=== PATIENT | female | born 1960 | race Caucasian/White ===

== ENCOUNTER 2016-11-08 05:45 | Day surgery (SDC) | payer OTHER ==
[~2016-11-08] VITALS: Ht 165.1 cm; Wt 65.8 kg
[~2016-11-08 05:45] MED LIST: ALLEGRA ALLERG180 MG PO; MULTIVITAMINS1 EAC7 PO
--- NOTE | 2016-11-08 11:46 | NUR ---
11/08/16 1146 Maru Zamudio 1141 PATIENT ARRIVES TO PACU UNRESPONSIVE TO PAIN OR VERBAL STIMULI. ORAL AIRWAY IN PLACE, MASK AT 6 LITERS. INITIAL TEMP IS 96.8, BEAR HUGGER ON .
--- NOTE | 2016-11-08 12:46 | NUR ---
1235: PATIENT BACK IN DAY SURGERY ROOM FROM PACU. C/O PAIN IN VAGINAL AREA. RECENTLY MEDICATED IN PACU. PATIENT DROWSY, BUT EASILY AWAKENS. IV SITE WNL. SCDs ON. ICE WATER PLACED AT BEDSIDE. VERA HUGGER PLACED ON PATIENT. FORRESTER CATHETER IN PLACE. CALL LIGHT WITHIN REACH.
--- NOTE | 2016-11-08 14:32 | NUR ---
PATIENT SLEEPING. AWAKENS EASILY TO VOICE. VS CHECKED. FORRESTER EMPTIED. IV SITE WNL. DENIES NEED FOR PAIN MEDICATION AT THIS TIME. SCDs ON. CALL LIGHT WITHIN REACH.
--- NOTE | 2016-11-08 15:30 | NUR ---
PATIENT AWAKENED FOR ASSESSMENT. C/O PAIN 05/01. DENIES NEED FOR PAIN MEDICATION AT THIS TIME. TOLERATING SIPS OF WATER. STATES FEELS "SO SLEEPY". FORRESTER IN PLACE. SCDs ON. IV SITE WNL. CALL LIGHT WITHIN REACH.
--- NOTE | 2016-11-08 17:45 | NUR ---
PATIENT ARRIVES TO FLOOR VIA STRETCHER, STABLE. AOX3. REPORT RECEIVED FROM WILDLIFE REFUGE SPECIALIST ANNELIESE. PATIENT ABLE TO STAND FOR TRASNFER FROM STRETCHER TO BED, TOLERATED WELL. PATIENT REPORTS TOLERABLE PAIN 2/10 TO ABDOMEN AT THIS TIME. DENIES ANY N/V. CALL LIGHT WITHIN REACH, ICE WATER REFRESHED.
--- NOTE | 2016-11-08 18:51 | NUR ---
LR @125ML/HR STARTED PER MD ORDERS. PATIENT FEELS OK TO TRY CRACKERS AT THIS TIME. DENES ANY N/V. CONTINUES TO REPORT PAIN TOLERABLE.
--- NOTE | 2016-11-08 20:20 | NUR ---
ASSESSMENT COMPLETE. VSS. PT DENIES N/V AND PAIN. FRESH WATER PROVIDED. IV INFUSING. FORRESTER EMPTIED. ATE REGULAR DIET SNACK, ANGIE WELL.
--- NOTE | 2016-11-08 21:22 | NUR ---
SCHEDULED STOOL SOFTNERS GIVEN. DENIES PAIN, N/V. RESTING COMFORTABLY. FRESH WATER PROVIDED. CALL LIGHT WITHIN REACH.
--- NOTE | 2016-11-08 22:26 | NUR ---
SCHEDULED RX GIVEN. PT DENIES PAINFUL, REPORTS "SORENESS" AT INCISION SITES. SURGICAL SITES WNL. RESTING COMFORTABLY LEFT TILT. FORRESTER EMPTIED, FRESH WATER GIVEN. DENIES FURTHER REQUESTS.
--- NOTE | 2016-11-09 00:14 | NUR ---
AMBULATES IN ROOM, ANGIE WELL. BACK TO BED. DENIES NEEDING ANYTHING FOR PAIN, REPORTS "SORE" BUT NOT PAINFUL. VSS. IV INFUSING. SCDS ON. FORRESTER DRAINED, WNL. FRESH WATER PROVIDED. DENIES FURTHER NEEDS.
--- NOTE | 2016-11-09 02:20 | NUR ---
RESTING. IV SALINE LOCKED. FORRESTER EMPTIED. FRESH WATER GIVEN. PT REPORTS FEELING "ACHY" BUT DENIES NEED FOR PAIN RX.
--- NOTE | 2016-11-09 04:35 | NUR ---
REQUESTS PAIN RX FOR 4/10 PAIN IN ABD, PAIN RX GIVEN SEE EMAR. 3 INCISION SITES WNL. VSS. FORRESTER DRAINED CLEAR YELLOW URINE. VAG PACKING REMOVED, PT ANGIE WELL. FRESH PAD AND PERIPAD PLACED. PT PLANS TO REST. FRESH WATER GIVEN.
--- NOTE | 2016-11-09 06:46 | NUR ---
SCHEDULED RX GIVEN, SEE EMAR. UP TO BR, VOIDS SMALL AMOUNT, ENCOURAGED PO FLUIDS. BACK TO BED, PT ANGIE WELL. PLANS TO ORDER BREAKFAST. SCDS IN PLACE.
--- NOTE | 2016-11-09 08:33 | NUR ---
ASSESSMENT COMPLETED, PT STATES PAIN 05/01, RESTING, SCD'S ON
--- NOTE | 2016-11-09 12:52 | NUR ---
1110-PT DISCHARGED HOME VIA WC
--- NOTE | 2016-11-13 08:26 | OR ---
[facility] [address] [place], [place] [address] Signed DATE OF SERVICE: 11/08/2016 PREOPERATIVE DIAGNOSES: Uterovaginal prolapse complete. BRCA2 mutation positive. POSTOPERATIVE DIAGNOSES: Uterovaginal prolapse complete. BRCA2 mutation positive. PROCEDURES: Total laparoscopic hysterectomy with bilateral salpingo-oophorectomy, anterior and posterior repair and cystoscopy. SURGEON: Dr. Abelardo Sanchez. CITY RECORDER: Dr. Kerwin Muñoz. ANESTHESIA: General. ESTIMATED BLOOD LOSS: 75 mL. SPECIMEN: Uterus, both fallopian tubes and both ovaries. DRAINS: Solis to bladder. PACKING: Premarin soaked gauze in vagina. FINDINGS: Cervix closed. Uterus normal size and shape with uterine cavity scarred closed due to previous endometrial ablation with a cavity finally sounding to 9 cm. The anterior cul- de-sac was free of any endometriosis or adhesions. The posterior cul-de-sac was free of any endometriosis or adhesions. The left tube was normal length and normal pink fimbriated end. No adhesions. Left ovary is normal size and shape without any evidence of endometriosis or adhesions. The right tube was normal in length and normal pink fimbriated end and no adhesions. Right ovary is normal size and shape without any evidence of endometriosis or adhesions. The rest of the pelvis was free of any masses or adhesions. The abdomen including the liver and the diaphragm and peritoneum all appeared normal with no lesions. COMPLICATIONS: None Electronically Signed By: ABELARDO SANCHEZ MD 11/13/16 0826 PATIENT NAME: GUCCI GRESHAM HAND OPERATIVE REPORT DATE OF : 62 PHYSICIAN: ABELARDO SANCHEZ MD REPORT #: [id number] REPORT IS CONFIDENTIAL AND NOT TO BE RELEASED WITHOUT AUTHORIZATION [facility] [address] [place], [place] [address] Signed DESCRIPTION OF PROCEDURE: The patient was brought to the operating room, placed supine position. After adequate general anesthesia was obtained, was placed on dorsal lithotomy position, prepped and draped in the usual sterile fashion. Solis catheter was placed in the bladder and weighted speculum placed in vagina. The anterior lip of cervix was grasp e d with an Allis clamp. Uterine cavity was attempted to be sounded but even with dilator it was very difficult to enter the uterine cavity, so the uterine manipulator was placed only into the lower segment as far as it could go in the balloon filled and th e n the cervical cap and after removing the Allis clamp and weighted speculum the cervical cap was slid up around the cervix and the vaginal cuff slid down and tightened in place to hold the cervical cap in place. A sterile glove was placed over the uterine manipulator to use so that this could be manipulated from above. Attention was then drawn to the abdomen. A small incision was made with a scalpel after injecting the area with local anesthetic. The abdominal wall was elevated and the translucent trocar and sleeve with laparoscope within the trocar was used to enter the abdomen under direct visual visualization. With the sleeve in the abdomen, the trocar was removed, then the laparoscope taken out of the trocar in place through the sleeve. Abdomen was in sufflated with carbon dioxide. On the left side, the abdomen just below the level of the umbilicus was transilluminated and after injecting local anesthetic a small skin incision was made and a bladed 5 mm trocar and sleeve entered the abdomen under direct visualization. The trocar was removed and the blunt probe inserted. On the right side just below the level of the umbilicus again the abdomen was transilluminated to avoid any vessels and the skin was injected with local anesthetic and Veress needle with expandable sleeve placed through the abdominal wall into the abdomen under direct visualization. The Veress needle was removed, then the expandable 10 mm trocar and sleeve was placed through the mesh expanding the fascial incision open. The trocar was karie v ed leaving the sleeve. Blunt graspers were also inserted through this, the above findings were noted. The LigaSure [place] bipolar forceps were then placed in and the left infundibulopelvic ligament cauterized in several places and cut. The upper pedicle was then cut down the side of the broad ligament and down to the round ligament, and the upper pedicle leaving the tube and ovary attached to the uterus. Once reaching the broad ligament, the anterior and posterior leaves of broad ligament were , cauterized and cut separately near the side of the uterus and extending down to the midline anteriorly and posteriorly. Uterine vessels were then exposed and identified and these were cauterized in several places and then cut again using the [place] bipolar forceps. The paracervical tissue was also cauterized and cut freeing down to the level of the vaginal mucosa. Abelardo Sanchez MD Electronically Signed By: ABELARDO SANCHEZ MD 11/13/16 0826 PATIENT NAME: GUCCI GRESHAM OPERATIVE REPORT DATE OF : 62 PHYSICIAN: ABELARDO SANCHEZ MD REPORT #: [id number] REPORT IS CONFIDENTIAL AND NOT TO BE RELEASED WITHOUT AUTHORIZATION [address] [place], [place] [address] Signed LEIF/Piotr /[id number] cc: Fady Balbuena Electronically Signed By: ABELARDO SANCHEZ MD 11/13/16 0826 PATIENT NAME: MARGAGUCCI [facility] OPERATIVE REPORT DATE OF : 62 PHYSICIAN: ABELARDO SANCHEZ MD REPORT #: [id number] REPORT IS CONFIDENTIAL AND NOT TO BE RELEASED WITHOUT AUTHORIZATION
--- NOTE | 2016-11-13 08:26 | OR ---
[facility] [address] [place], [place] [address] Signed DATE OF SERVICE: 11/08/2016 PREOPERATIVE DIAGNOSIS: Complete uterovaginal prolapse and positive for BRCA2 gene mutation. POSTOPERATIVE DIAGNOSIS: Complete uterovaginal prolapse and positive for BRCA2 gene mutation. PROCEDURE: Total laparoscopic hysterectomy, bilateral salpingo-oophorectomy, anterior and posterior repair, and cystoscopy. SURGEON: Abelardo Sanchez MD. PRIMER EXPEDITOR AND DRIER: Dr. Kerwin Muñoz. ANESTHESIA: General. ESTIMATED BLOOD LOSS: 75 mL. SPECIMEN: Uterus, both fallopian tubes, and ovaries. DRAINS: Solis to bladder, packing, Premarin gauze, and vagina. FINDINGS: Normal cervix, normal size uterus with grade 2 to 3 prolapse. Uterine cavity was scarred, closed due to previous endometrial ablation. After dissecting with a sound, the uterine cavity did sound as 9 cm. The anterior cul-de-sac was free of any endometriosis or adhesions. The posterior cul-de-sac was free of any endometriosis or adhesions. The left tube was normal in length and normal pink fimbriated end. Left ovary is normal size and shape without any evidence of endometriosis or masses or adhesions. The right tube was normal in length and normal pink fimbriated end. Right ovary is normal without any evidence of any masses, endometriosis, or adhesions. Rest of the pelvis was free of any masses, scarring, or lesions. The liver and diaphragm appeared normal with no lesions. DESCRIPTION OF PROCEDURE: The patient was brought into the operating room, placed in the supine position after adequate general anesthesia was obtained. The patient was placed in dorsal lithotomy position, prepped and draped in usual sterile fashion. Solis catheter was placed in the bladder. A weighted speculum was placed in the vagina, and the anterior lip of the cervix was grasped with an Allis clamp. Uterine cavity attempted to be sounded, but the sound would only go in short distance, attempt was made to dilate this further and the Electronically Signed By: ABELARDO SANCHEZ MD 11/13/16 0826 PATIENT NAME: GUCCI GRESHAM [facility] OPERATIVE REPORT DATE OF : 62 PHYSICIAN: ABELARDO SANCHEZ MD REPORT #: [id number] REPORT IS CONFIDENTIAL AND NOT TO BE RELEASED WITHOUT AUTHORIZATION [facility] [address] [place], [place] [address] Signed sound could only go in about 4 to 5 cm. The are uterine manipulator was then placed in this shortened space, which apparently was in the lower uterine segment and the balloon filled. After removing the Allis clamp and weighted speculum, the cervical cap was slid up and around the cervix and the vaginal cup slid up and tightened and placed to hold the cervical cap in place. A sterile g love was placed over the manipulator so this could be used from above. Attention was then drawn to the abdomen. A small infraumbilical skin incision was made after injecting the area with 0.5% Marcaine, 5 mm direct visualization entry, trocar and sleeve with 5 mm scope within was then placed into the abdomen while lifting up the anterior abdominal wall. The trocar was removed and the laparoscope re-inserted through the sleeve. A small incision was made in the left side of the abdomen just below the level of the umbilicus, the side was transilluminated to avoid any vessels and area injected with 0.5% Marcaine, small skin incision made and then ablated 5 mL trocar and sleeve end of the abdomen under direct visualization. The trocar was removed. The blunt gra s per inserted. On the right lateral side just below the level of the umbilicus, again the abdominal wall was transilluminated to avoid any vessels, the area injected with 0.5% Marcaine and a small skin incision made with a scalpel. Veress needle with expan d able sleeve was then placed into the abdomen under direct visualization. The Veress needle was removed and expandable trocar and 10 mm sleeve was placed through the expandable mesh, stretching the opening to a 10 mm port, trocar was removed, then 1 grasper was inserted here. The above findings were noted. The LigaSure [place] bipolar forceps were then placed in the field. The left infundibulopelvic ligament was cauterized in several places and then cut and then the broad ligament cauterized and cut down to the level of the lower segment. The anterior and posterior leafs of the broad ligament were then separately cauterized and cut, exposing the uterine vessels. The uterine vessels on the left side were then cauterized in several places and cut and the tiss u e around the paracervical tissue inside the palpated cervical cap were cauterized and cut. The right side same thing was done, cauterizing the right infundibulo-pelvic ligament in several places. On each side care was taken to identify the ureters and stay well away from them. After cutting this ligament, the broad ligament in the mid portion of the uterus, the anterior and posterior leaves were separately cauterized and cut, extending the incision to the previous made dissection in the midline posteri o rly and anteriorly. The right uterine vessels were then exposed, and these were cauterized and cut and the paracervical tissue over the mucosa was cauterized and cut, staying inside the cervical cap with vaginal mucosa identified and the Sonicision was used to cut the posterior vaginal mucosa and the incision was extended upward on each side, posterior to anteriorly in the groove of the cervical cap meeting anteriorly in the midline, the uterus with attached cervix, tubes, and ovaries from the v a arin. The uterus, tubes, and ovaries were then removed through the vaginal cuff and sponge inside the glove was placed in the vagina to be able to reinflate the abdomen. The entire pelvis was irrigated, suctioned, examined, noted to have good hemostasis. The EndoStitch Barbed suture was then used, closed the Electronically Signed By: ABELARDO SANCHEZ MD 11/13/16 0826 PATIENT NAME: GUCCI GRESHAM [facility] OPERATIVE REPORT DATE OF : 62 PHYSICIAN: ABELARDO SANCHEZ MD REPORT #: [id number] REPORT IS CONFIDENTIAL AND NOT TO BE RELEASED WITHOUT AUTHORIZATION [facility] [address] [place], [place] [address] Signed vaginal cuff starting at the right uterosacral ligament and individually stitching the posterior vaginal mucosa, then the anterior vaginal mucosa and continuing the closure from the right uterosacral ligament over to the left uterosacral ligament and then back towards the middle with 2 more stitches. The Barbed suture was then cut against the vaginal cuff. At this point, good closure was noted. The entire pelvis was irrigated, suctioned, examined, and a g ain noted to have good hemostasis throughout. The Episeal was then placed over the cuff end in the raw area to help control any bleeding or oozing. At this point, all instruments were removed. The gas allowed to escape in the final sleeve and all sleeves were removed. The 3 skin incisions were closed using subcuticular stitches of 4-0 Vicryl. Cystoscopy was then done with 70-degree cystoscope filling bladder with sterile water, both ureteral orifices were identified and good jets of urine were noted to co me from each. There were no defects in the bladder in any spots. The cystoscope was removed and Solis placed back in the bladder. The vaginal cuff closure was gently palpated, noted to have good closure and no masses or no defects noted. Anterior repair was then done by grasping the vaginal mucosa in the midline over the area of the cystocele and after injecting the vaginal mucosa with 0.5% Marcaine with epinephrine, a vertical midline skin incision was made with a scalpel and the Metzenbaum scissors were used to undermine the vaginal mucosa, identifying and isolating the cystocele. Horizontal mattress stitches of 0 Vicryl suture were then placed to elevate the cystocele and the vaginal mucosa then trimmed on either side and closed with a running locking 2-0 suture, this did elevate the bladder. She previously had TVT sling done, so this area was avoided. Good hemostasis was noted. Posterior repair was then started by grasping the posterior introitus with 2 Allis clamps and making a horizontal incision at the introitus between the 2 clamps. A small triangular piece of perineal skin was removed, the base being the original incision and the apex being half way between the vagina and the rectum. Finger dissection was used to identify the upper por t ion of the rectocele and a curved Andrew clamp placed on the vaginal mucosa at the distal end of the rectocele. The posterior vaginal mucosa was then undermined and opened along the midline using Metzenbaum scissors. Metzenbaum scissors and open sponge was then used to separate the rectocele from the posterior vaginal mucosa. Horizontal mattress stitches of 0 Vicryl suture then placed [id number] in the lateral more firm tissue. All stitches were placed before starting distal and moving forward and each s t itch was placed and then tagged. After all these stitches were in place, they were tied starting posterior, moving anteriorly, bringing the rectocele together and closing this off. The vaginal mucosa was then trimmed on either side in a running locking st i tch, 2-0 Vicryl suture was used to close the vaginal mucosa. Two interrupted stitches of 0 Vicryl suture were used to reinforce the perineal body and then the 2-0 Vicryl suture closure was done subcutaneously down to the apex and then Electronically Signed By: ABELARDO SANCHEZ MD 11/13/16 0826 PATIENT NAME: GUCCI GRESHAM [facility] OPERATIVE REPORT DATE OF : 62 PHYSICIAN: ABELARDO SANCHEZ MD REPORT #: [id number] REPORT IS CONFIDENTIAL AND NOT TO BE RELEASED WITHOUT AUTHORIZATION [facility] [address] [place] [id number] Signed subcuticularly back t o the introitus, this was then tied. At this point, cystoscope was repeated and both ureters were seen to be showing good jets of urine and no further defects or stitches noted in the bladder. The vagina was then packed with Premarin soaked gauze, fully l eft in place. The patient tolerated the procedure well, went to recovery room in good condition. The sponge, needle, and instrument count were correct at the end of the procedure. The uterus, both tubes, and ovaries sent to pathology for identification. MD LEIF Larry/Piotr /[id number] cc: Dr. Fady Balbuena Electronically Signed By: ABELARDO SANCHEZ MD 11/13/16 0826 PATIENT NAME: GUCCI GRESHAM [facility] OPERATIVE REPORT DATE OF : 62 PHYSICIAN: ABELARDO SANCHEZ MD REPORT #: [id number] REPORT IS CONFIDENTIAL AND NOT TO BE RELEASED WITHOUT AUTHORIZATION
== END 2016-11-09 11:10 | disposition home or self-care (01) ==
LOC: DS 05:45 → MS 06:45 → DS 06:45 → EDSTATUS 06:45 → FBC 17:35 → MS 17:35 → DS 11-09 11:10
PROVIDERS: General Practice
PROC: 0UT94ZZ Resection of Uterus, Percutaneous Endoscopic Approach (ICD-10-PCS; principal; 2016-11-08 06:45)
PROC: 0UTC4ZZ Resection of Cervix, Percutaneous Endoscopic Approach (ICD-10-PCS; 2016-11-08 06:45)
PROC: 0UT24ZZ Resection of Bilateral Ovaries, Percutaneous Endoscopic Approach (ICD-10-PCS; 2016-11-08 06:45)
PROC: 0UT74ZZ Resection of Bilateral Fallopian Tubes, Percutaneous Endoscopic Approach (ICD-10-PCS; 2016-11-08 06:45)
DX: D25.1 Intramural leiomyoma of uterus (principal); N80.0 Endometriosis of uterus; D27.1 Benign neoplasm of left ovary; N72 Inflammatory disease of cervix uteri; N81.3 Complete uterovaginal prolapse; Z98.890 Other specified postprocedural states; Z88.5 Allergy status to narcotic agent; N83.8 Other noninflammatory disorders of ovary, fallopian tube and broad ligament; Z82.49 Family history of ischemic heart disease and other diseases of the circulatory system; Z79.899 Other long term (current) drug therapy
CPT/HCPCS: 00944; J0690; J1100; J1644; J1885; J2250; J2270; J2405; J2704; J3010; J7120

== ENCOUNTER 2019-01-23 07:21 | Day surgery (SDC) | payer OTHER ==
[~2019-01-23] VITALS: Ht 165.1 cm; Wt 65.8 kg
--- NOTE | 2019-01-23 09:14 | NUR ---
01/23/19 0914 Keily De Leon 0909- PT ARRIVES TO PACU EASILY AROUSABLE TO VOICE. FALLS TO SLEEP WHEN NOT BEING TALKED TO. RESP EVEN AND UNLABORED. OXYGEN SAT HIGH 90'S TO 100% ON 2L VIA NC. 0913- OXYGEN TITRATED OFF.
--- NOTE | 2019-01-24 10:35 | OR ---
[facility] [address] [place], [place] [address] Signed DATE OF OPERATION: 01/23/2019 SURGEON: Socorro Mendez MD PREOPERATIVE DIAGNOSIS: Colon cancer screening, history of hyperplastic polyps in 2011. POSTOPERATIVE DIAGNOSIS: Normal-appearing colon except for mild proctitis. PROCEDURE: Total colonoscopy to cecum with biopsy of rectum. ANESTHESIA: Intravenous sedation, fentanyl 150 mcg, Versed 6 mg. 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 Pickett. She underwent colonoscopy in 2011, which showed three hyperplastic polyps of the left colon. She underwent fecal occult blood testing in 2018, which was normal. The patient has been diagnosed with BRCA mutation. I am uncertain if BRCA 1, 2, or both. She has a history of breast augmentation and did not undergo bilateral mastectomy. She has had hysterectomy and oophorectomy as well as uterine ablation previously. She is admitted at this time to undergo surveillance colonoscopy, though she is symptom-free. The risks of bleeding, infection, and perforation were reviewed with her. She understands and wished to proceed. FINDINGS: The prep was good. Complete colonoscopy was undertaken to the cecum. There was no sign of polyps or diverticular formation. She did have mild proctitis. Biopsies were obtained. DESCRIPTION OF PROCEDURE: The patient was brought to the endoscopy suite and placed in lateral decubitus position, given intravenous sedation to the point of slurred speech and nystagmus. Digital rectal examination was normal. An Olympus video colonoscope was passed in the rectum and manipulated throughout the colon ultimately intubating the right colon. With various manipulations, the cecum could be more fully visualized. Ultimately, a "pull-up" with biopsy forceps showed Electronically Signed By: SOCORRO MENDEZ MD 01/24/19 1035 PATIENT NAME: GUCCI GRESHAM OPERATIVE REPORT DATE OF : 62 REPORT #: [id number] PHYSICIAN: SOCORRO MENDEZ MD PCP: FADY PICKETT DO REPORT IS CONFIDENTIAL AND NOT TO BE RELEASED WITHOUT AUTHORIZATION [facility] [address] [place], [place] [address] Signed complete visualization of the cecal mucosa. The scope was carefully withdrawn from that point. Examination throughout showed no sign of polyps or diverticular formation. In the rectum, there was mild proctitis, which may have been bowel prep related. Biopsies were obtained. Scope was straightened, withdrawn, removed, and the patient was taken to recovery room in good condition. CONCLUDING DIAGNOSIS: Normal colon except for mild proctitis. PLAN: We will review the pathology report of her biopsy. As regard to the repeat colonoscopy, literature review shows that there may be an increased risk of colon cancer in patients with BRCA1 mutation, though not BRCA2 (citation Journal of [employer] [place] 2018). I am uncertain as to her actual BRCA subtype standard, but would recommend reconsideration of colonoscopy at five years if in fact she does have a BRCA1 mutation. MD YVETTE Bird/TEJAS /[id number] cc: Fady Pickett DO Copies: FADY PICKETT DO ~ Electronically Signed By: SOCORRO MENDEZ MD 01/24/19 1035 PATIENT NAME: GUCCI GRESHAM [facility] OPERATIVE REPORT DATE OF : 62 REPORT #: [id number] PHYSICIAN: SOCORRO MENDEZ MD PCP: FADY PICKETT DO REPORT IS CONFIDENTIAL AND NOT TO BE RELEASED WITHOUT AUTHORIZATION
== END 2019-01-23 09:45 | disposition home or self-care (01) ==
LOC: DS 07:21 → OPS 07:21 → DS 08:30 → OPS 09:45
PROVIDERS: Surgery
PROC: 0DBP8ZX Excision of Rectum, Via Natural or Artificial Opening Endoscopic, Diagnostic (ICD-10-PCS; principal; 2019-01-23 08:30)
DX: Z12.11 Encounter for screening for malignant neoplasm of colon (principal); K62.6 Ulcer of anus and rectum; Z86.010 Personal history of colon polyps; Z88.5 Allergy status to narcotic agent; Z15.01 Genetic susceptibility to malignant neoplasm of breast; Z98.82 Breast implant status; Z90.79 Acquired absence of other genital organ(s)
CPT/HCPCS: 99153; G0500; J2250; J3010; J7120